=== PATIENT | female | born 1970 | race Caucasian/White ===

== ENCOUNTER → 2021-02-04 | Outpatient (CLI) | payer OTHER | LOC: HEART CORB 09:30 | DX: R07.2 Precordial pain (principal); R06.02 Shortness of breath; I12.9 Hypertensive chronic kidney disease with stage 1 through stage 4 chronic kidney disease, or unspecified chronic kidney disease; E11.22 Type 2 diabetes mellitus with diabetic chronic kidney disease; N18.9 Chronic kidney disease, unspecified; J44.9 Chronic obstructive pulmonary disease, unspecified; E78.5 Hyperlipidemia, unspecified; F17.210 Nicotine dependence, cigarettes, uncomplicated | CPT/HCPCS: 78452; A9502; J2785 ==

== ENCOUNTER → 2021-05-03 | Outpatient (CLI) | payer OTHER ==
[~2021-05-03] MED LIST: ADMELOG SO100 UNIT/1 SC; ALL DAY ALLERGY10 M2 PO; ASPIRIN EC81 MG PO; BASAGLAR K100 UNIT/1 SQ; BUMETANIDE1 MG PO; BUSPAR 10MG10 MG PO; CATAPRES 0.1MG0.1 MG PO; CRESTOR20 MG PO; CYCLOBENZAPRINE5 MG PO; CYMBALTA60 MG PO; ELAVIL 50 MG TA50 MG PO; IBUPROFEN800 MG PO; IMITREX50 MG PO; ISOSORBIDE MONO30 MG PO; JARDIANCE25 MG PO; LAMOTRIGINE ER100 MG PO; LEVOTHYROXINE100 MC2 PO; METFORMIN HCL1000 M1 PO; NEURONTIN400 MG PO; POTASSIUM CHLO10 ME2 PO; PROAIR HFA8.5 GM INH; SEROQUEL100 MG PO; TOPAMAX50 MG PO; TOPROL XL50 MG PO; TRAZODONE HCL100 MG PO; VARENICLINE TART1 MG PO; VENLAFAXINE HC150 MG PO
== END ==
LOC: CATH 08:01
DX: I20.9 Angina pectoris, unspecified (principal); E11.9 Type 2 diabetes mellitus without complications; E78.5 Hyperlipidemia, unspecified; I12.0 Hypertensive chronic kidney disease with stage 5 chronic kidney disease or end stage renal disease; N18.9 Chronic kidney disease, unspecified; I50.32 Chronic diastolic (congestive) heart failure; J44.9 Chronic obstructive pulmonary disease, unspecified; E66.9 Obesity, unspecified; G40.909 Epilepsy, unspecified, not intractable, without status epilepticus; G47.33 Obstructive sleep apnea (adult) (pediatric); Z20.822 Contact with and (suspected) exposure to COVID-19; Z88.6 Allergy status to analgesic agent; Z91.030 Bee allergy status; Z91.038 Other insect allergy status; Z79.82 Long term (current) use of aspirin; Z79.84 Long term (current) use of oral hypoglycemic drugs; Z79.52 Long term (current) use of systemic steroids; Z79.891 Long term (current) use of opiate analgesic; Z79.899 Other long term (current) drug therapy
CPT/HCPCS: 82962; C1769; J1644; J2250; J3010; J7030; Q9967; U0002